=== PATIENT | female | born 1950 | race Caucasian/White ===

== ENCOUNTER → 2020-05-31 | Outpatient (CLI) | payer MEDICARE, OTHER | END | disposition home or self-care (01) | LOC: WOUND 12:46 | PROVIDERS: ATTEND Podiatrist Foot & Ankle Surgery | DX: L97.811 Non-pressure chronic ulcer of other part of right lower leg limited to breakdown of skin (principal); L97.211 Non-pressure chronic ulcer of right calf limited to breakdown of skin; I87.8 Other specified disorders of veins; I48.91 Unspecified atrial fibrillation; Z79.01 Long term (current) use of anticoagulants; Z88.2 Allergy status to sulfonamides | CPT/HCPCS: 97597; 97598; G0463 ==

== ENCOUNTER → 2020-06-07 | Outpatient (CLI) | payer MEDICARE, OTHER | END | disposition home or self-care (01) | LOC: WOUND 10:52 | PROVIDERS: ATTEND Podiatrist Foot & Ankle Surgery | DX: L97.811 Non-pressure chronic ulcer of other part of right lower leg limited to breakdown of skin (principal); I48.91 Unspecified atrial fibrillation; Z90.89 Acquired absence of other organs | CPT/HCPCS: 29581 ==

== ENCOUNTER 2020-06-14 10:48 | Outpatient (CLI) | payer MEDICARE, OTHER | END 2020-06-14 23:59 | disposition home or self-care (01) | LOC: WOUND 10:48 | PROVIDERS: ATTEND Podiatrist Foot & Ankle Surgery | DX: L97.811 Non-pressure chronic ulcer of other part of right lower leg limited to breakdown of skin (principal); L97.211 Non-pressure chronic ulcer of right calf limited to breakdown of skin; I87.8 Other specified disorders of veins; I48.91 Unspecified atrial fibrillation; Z79.01 Long term (current) use of anticoagulants; Z88.2 Allergy status to sulfonamides | CPT/HCPCS: 97597 ==

== ENCOUNTER → 2020-06-21 | Outpatient (CLI) | payer MEDICARE, OTHER | END | disposition home or self-care (01) | LOC: WOUND 11:59 | PROVIDERS: ATTEND Podiatrist Foot & Ankle Surgery | DX: L97.818 Non-pressure chronic ulcer of other part of right lower leg with other specified severity (principal); I87.8 Other specified disorders of veins; I48.91 Unspecified atrial fibrillation; Z79.01 Long term (current) use of anticoagulants; Z88.2 Allergy status to sulfonamides | CPT/HCPCS: G0463 ==

== ENCOUNTER 2020-07-19 09:56 | Outpatient (CLI) | payer MEDICARE, OTHER | END 2020-07-19 23:59 | disposition home or self-care (01) | LOC: WOUND 09:56 | PROVIDERS: ATTEND Podiatrist Foot & Ankle Surgery | DX: L97.811 Non-pressure chronic ulcer of other part of right lower leg limited to breakdown of skin (principal); I87.8 Other specified disorders of veins; I48.91 Unspecified atrial fibrillation; L84 Corns and callosities; Z79.01 Long term (current) use of anticoagulants; Z88.2 Allergy status to sulfonamides | CPT/HCPCS: 97597 ==

== ENCOUNTER → 2020-07-26 | Outpatient (CLI) | payer MEDICARE, OTHER | END | disposition home or self-care (01) | LOC: WOUND 09:58 | PROVIDERS: ATTEND Podiatrist Foot & Ankle Surgery | DX: L97.811 Non-pressure chronic ulcer of other part of right lower leg limited to breakdown of skin (principal); L84 Corns and callosities; I48.91 Unspecified atrial fibrillation; Z90.89 Acquired absence of other organs | CPT/HCPCS: 97597 ==

== ENCOUNTER → 2020-08-02 | Outpatient (CLI) | payer MEDICARE, OTHER | END | disposition home or self-care (01) | LOC: WOUND 10:45 | PROVIDERS: ATTEND Podiatrist Foot & Ankle Surgery | DX: L97.828 Non-pressure chronic ulcer of other part of left lower leg with other specified severity (principal); L84 Corns and callosities; I48.91 Unspecified atrial fibrillation; I87.8 Other specified disorders of veins; Z79.01 Long term (current) use of anticoagulants; Z88.2 Allergy status to sulfonamides; Z90.89 Acquired absence of other organs | CPT/HCPCS: G0463 ==

== ENCOUNTER → 2020-09-20 | Outpatient (CLI) | payer MEDICARE, OTHER | END | disposition home or self-care (01) | LOC: WOUND 14:36 | PROVIDERS: ATTEND Podiatrist Foot & Ankle Surgery | DX: L97.812 Non-pressure chronic ulcer of other part of right lower leg with fat layer exposed (principal); L03.115 Cellulitis of right lower limb; L84 Corns and callosities; I48.91 Unspecified atrial fibrillation; I87.8 Other specified disorders of veins; Z79.01 Long term (current) use of anticoagulants; Z88.2 Allergy status to sulfonamides; Z90.89 Acquired absence of other organs | CPT/HCPCS: 97597 ==

== ENCOUNTER 2020-09-27 10:23 | Outpatient (CLI) | payer MEDICARE, OTHER | END 2020-09-27 23:59 | disposition home or self-care (01) | LOC: WOUND 10:23 | PROVIDERS: ATTEND Podiatrist Foot & Ankle Surgery | DX: L97.812 Non-pressure chronic ulcer of other part of right lower leg with fat layer exposed (principal); I87.8 Other specified disorders of veins; I48.91 Unspecified atrial fibrillation; Z90.89 Acquired absence of other organs | CPT/HCPCS: 97597 ==

== ENCOUNTER → 2020-10-18 | Outpatient (CLI) | payer MEDICARE, OTHER | END | disposition home or self-care (01) | LOC: WOUND 13:59 | PROVIDERS: ATTEND Podiatrist Foot & Ankle Surgery | DX: L97.818 Non-pressure chronic ulcer of other part of right lower leg with other specified severity (principal); L03.115 Cellulitis of right lower limb; L84 Corns and callosities; I48.91 Unspecified atrial fibrillation; I87.8 Other specified disorders of veins; Z79.01 Long term (current) use of anticoagulants; Z88.2 Allergy status to sulfonamides; Z90.89 Acquired absence of other organs | CPT/HCPCS: G0463 ==